=== PATIENT | female | born 1940 ===

== ENCOUNTER → 2017-12-24 13:10 | Outpatient (REF) | payer OTHER, SELFPAY ==
[2017-12-24 13:42] LABS: Alanine Aminotransferase 27 IU/L (9-52); Albumin 4.3 g/dL (3.5-5.0); Albumin Globulin Ratio 1.7 (1.0-2.8); Alkaline Phosphatase 51 U/L (38-126); Aspartate Aminotransferase 26 IU/L (14-36); BUN Creatinine Ratio 35.7 (6-22); Bilirubin Total 0.4 mg/dL (0.2-1.3); Blood Urea Nitrogen 25 mg/dL (7-17); Calcium 10.2 mg/dL (8.4-10.2); Carbon Dioxide 32 mmol/L (22-32); Chloride 100 mmol/L (98-107); Cholesterol 162 mg/dL (140-199); Estimated Glomerular Filt Rate > 60.0 mL/min (>60); Globulin 2.5 g/dL (1.7-4.1); Glucose 102 mg/dL (80-110); HDL Cholesterol 61 mg/dL (40-60); HEMOLYSIS < 15 (0-50); LDL Cholesterol Calculated 74 mg/dL (<100); Potassium 4.5 mmol/L (3.4-5.1); Sodium 142 mmol/L (137-145); Total Protein 6.8 g/dL (6.3-8.2); Triglycerides 133 mg/dL (35-150)
[2017-12-24 13:44] LABS: Hemoglobin A1C% w Est Avg Glu 5.8 % (4.0-6.0)
== END ==
LOC: LAB 13:10
PROVIDERS: Visit Provider Family Medicine
DX: Z13.228 Encounter for screening for other metabolic disorders (principal); Z13.1 Encounter for screening for diabetes mellitus; Z13.6 Encounter for screening for cardiovascular disorders
CPT/HCPCS: 80053; 80061; 83036

== ENCOUNTER → 2018-02-20 18:29 | Outpatient (REF) | payer OTHER, SELFPAY | LOC: LAB 18:29 | PROVIDERS: Visit Provider Family Medicine | DX: N39.0 Urinary tract infection, site not specified (principal) | CPT/HCPCS: 87086 ==

== ENCOUNTER → 2018-06-05 17:10 | Outpatient (REF) | payer MEDICARE, SELFPAY ==
[2018-06-05 17:43] LABS: Glucose 93 mg/dL (80-110)
[2018-06-05 17:45] LABS: Hemoglobin A1C% w Est Avg Glu 5.6 % (4.0-6.0)
[2018-06-05 18:30] LABS: Vitamin B12 > 1000 pg/mL (239-931)
== END ==
LOC: LAB 17:10
PROVIDERS: Visit Provider Family Medicine
DX: E11.9 Type 2 diabetes mellitus without complications (principal)
CPT/HCPCS: 36415; 82607; 82947; 83036

== ENCOUNTER → 2018-09-07 19:23 | Outpatient (ROUT) | payer MEDICARE, SELFPAY ==
[2018-09-07 20:19] LABS: Hematocrit 38.1 % (36-46); Hemoglobin 12.4 g/dL (12.0-16.0); Mean Corpuscular HGB Conc 32.6 % (30-36); Mean Corpuscular Hemoglobin 32.7 PG (26-34); Mean Corpuscular Volume 100.6 fL (80-100); Platelet Count 278 X10^3/uL (150-400); Red Blood Cell Count 3.79 X10^6/uL (4.0-5.2); Red Cell Distribution Width 13.9 % (11.6-14.8); White Blood Cell Count 11.5 X10^3/uL (4.5-11.0)
[2018-09-07 20:20] LABS: Add Manual Diff / Slide Review YES
[2018-09-07 20:22] LABS: Reticulocyte Count, Percent 1.9 % (1.06-2.63)
[2018-09-07 20:46] LABS: Ferritin 69.6 ng/mL (11.1-264)
[2018-09-07 20:50] LABS: Total Cells Counted 100
[2018-09-07 20:51] LABS: Macrocytosis 1+; Neutrophils Absolute Manual 9430 /uL (3000-5900)
[2018-09-07 21:17] LABS: Folate > 20.0 ng/mL (2.76-20.0); Vitamin B12 > 1000 pg/mL (239-931)
== END ==
PROVIDERS: Visit Provider Family Medicine
DX: D64.9 Anemia, unspecified (principal)
CPT/HCPCS: 36415; 82607; 82728; 82746; 85025; 85045

== ENCOUNTER → 2018-09-30 19:35 | Outpatient (ROUT) | payer MEDICARE, SELFPAY ==
[2018-09-30 19:48] LABS: Hematocrit 38.4 % (36-46); Hemoglobin 12.6 g/dL (12.0-16.0)
[2018-09-30 19:59] LABS: Hemoglobin A1C% w Est Avg Glu 5.7 % (4.0-6.0)
[2018-09-30 20:25] LABS: Thyroid Stimulating Hormone 1.97 uIU/mL (0.47-4.68)
[2018-09-30 20:31] LABS: Ferritin 49.7 ng/mL (11.1-264)
[2018-09-30 21:01] LABS: Folate > 20.0 ng/mL (2.76-20.0); Vitamin B12 910 pg/mL (239-931)
== END ==
PROVIDERS: Visit Provider Family Medicine
DX: D64.9 Anemia, unspecified (principal); R53.83 Other fatigue
CPT/HCPCS: 36415; 82607; 82728; 82746; 83036; 84443; 85014; 85018